=== PATIENT | male | born 1960 | race Caucasian/White ===

== ENCOUNTER 2024-10-27 06:54 | Day surgery (SDC) | payer OTHER ==
[2024-10-20 12:01] VITALS: BMI 29.5
[2024-10-27] MEDS ORDERED: PROPOFOL 120 ML ONE (08:05)
[2024-10-27] MEDS ORDERED: LIDOCAINE HCL/PF 2% SDV 5ML VIAL ONE (08:05)
[2024-10-27 08:36] VITALS: PULSE 71; RESP 16; TEMP 97.6
[2024-10-27 08:45] VITALS: BP 129/78
== END 2024-10-27 08:50 | disposition home or self-care (01) ==
LOC: FASU-ENDO 06:54
PROVIDERS: ATTEND Internal Medicine Gastroenterology
PROC: 0DB68ZX Excision of Stomach, Via Natural or Artificial Opening Endoscopic, Diagnostic (ICD-10-PCS; 2024-10-27)
PROC: 0DB98ZX Excision of Duodenum, Via Natural or Artificial Opening Endoscopic, Diagnostic (ICD-10-PCS; principal; 2024-10-27 08:09)
DX: K29.50 Unspecified chronic gastritis without bleeding (principal); K20.90 Esophagitis, unspecified without bleeding; R14.0 Abdominal distension (gaseous); R63.0 Anorexia
CPT/HCPCS: 88305-TC; 88342-TC